=== PATIENT | male | born 1985 | race Caucasian/White ===

== ENCOUNTER 2020-03-08 09:24 | Outpatient (CLI) | payer BC, SELFPAY ==
--- NOTE | ~2020-03-08 | CT_ITS ---
EXAMINATION: CTA chest PE protocol DATE: 03/08/2020 10:04 INDICATION: Dyspnea TECHNIQUE: Computed tomography (CT) pulmonary angiogram of the chest was performed with 100 mL Omnipa que-350 intravenous contrast. Additional 3D reconstructions utilizing coronal maximum intensity proje ction (MIP) were performed. Automated exposure control and iterative reconstruction technique were em ployed. The dose-length product was 594.36 mGy-cm. COMPARISON: None FINDINGS: Excellent contrast opacification of the pulmonary arteries. There is mild streak artifact from dense contrast in the superior vena cava and right atrium. Animal scattered respiratory motion artifact whi ch does not significantly limit evaluation. No pulmonary embolism. No pneumonia, pulmonary edema, ple ural effusion or pneumothorax. Heart size is normal. No pericardial effusion. Thoracic aorta is yoko l in caliber. No pathologically enlarged thoracic lymphadenopathy. Visualized upper abdomen is unrema rkable. Minimal thoracic spondylosis. IMPRESSION: 1. No pulmonary embolism or other acute cardiopulmonary disease. Reviewed, dictated and finalized at location A. [employer]
== END 2020-03-08 09:25 | disposition home or self-care (01) ==
LOC: ANHIMG 09:29
PROVIDERS: PCP Physician Assistant; Visit Provider Physician Assistant
DX: R06.00 Dyspnea, unspecified (principal)
CPT/HCPCS: 71275; Q9967